=== PATIENT | male | born 1955 | race Caucasian/White ===

== ENCOUNTER 2019-01-27 10:20 | Observation (INO) | payer OTHER ==
[~2019-01-27] VITALS: Ht 165.1 cm; Wt 84.5 kg
[2019-01-27 11:34] VITALS: BP 158/110
[2019-01-27] MEDS ORDERED: LOSARTAN POTAS100 M1 PO (13:00)
[2019-01-27] MEDS ORDERED: TRAMADOL HCL50 MG (13:01)
--- NOTE | 2019-01-27 19:05 | NUR ---
RECEIVED PT FROM PACU, S/P LEFT TOTAL HIP ARTHROPLASTY VIA GUERNEY. AAOX4. DENIES HEADACHE/DIZZINESS. ABLE TO FOLLOW COMMANDS. SPEECH IS CLEAR. NO SOB NOTED, LUNG SOUNDS CTA. DENIES CHEST PAIN/PRESSURE. DENIES ABDOMINAL DISCOMFORT. W/ HERNÁNDEZ CATHETER DRAINING W/ YELLOW COLORED URINE. W/ ABDUCTOR PILLOW IN BETWEEN THE LEGS. W/ DRESSING ON THE LEFT HIP, CDI. IV SITE ON THE RIGHT HAND GAUGE 22 IS PATENT AND INTACT. SIDE RAILS UPX2. CALL LIGHT ON REACH. PT'S BROTHER AT BEDSIDE. ENDORSED TO PRIMARY NURSE GLADYS FOR CONTINUITY OF CARE
[2019-01-27 19:21] VITALS: BP 123/87
--- NOTE | 2019-01-27 19:35 | NUR ---
RECEIVED PT AT THIS TIME. PT AAOX4 DENIES EARLY/DIZZINESS. BREATHING EVEN AND UNLABORED ON RA WITH NO SOB NOTED. PT IN NO SIGNS OF ACUTE DISTRESS. ABDUCTOR PILLOW IN PLACE. LEFT HIP DRESSING, CDI. CALL BUTTON WITHIN REACH. SAFETY PRECAUTIONS IN PLACE. WILL CONTINUE TO MONITOR. FAMILY AT BEDSIDE.
[2019-01-27 20:54] VITALS: BP 135/69
--- NOTE | 2019-01-28 00:56 | NUR ---
ROUNDS MADE. PT RESTING. BREATHING EVEN AND UNLABORED. NO SIGNS OF DISTRESS NOTED. CALL BUTTON WITHIN REACH. SAFETY PRECAUTIONS IN PLACE. WILL CONTINUE TO MONITOR.
--- NOTE | 2019-01-28 02:33 | NUR ---
PT REPORTED HAVING LLE PAIN. MEDICATED PER EMAR. SAFETY PRECAUTIONS IN PLACE. CALL BUTTON WITHIN REACH. WILL CONTINUE TO MONITOR.
[2019-01-28 05:33] VITALS: BP 131/65
--- NOTE | 2019-01-28 06:28 | NUR ---
PT SLEPT MOST OF THE NIGHT WITH NO SIGNS OF DISTRESS. BREATHING EVEN AND UNLABORED ON RA, WITH NO SOB NOTED. PT DENIES ANY PAIN/DISTRESS. ABDUCTOR PILLOW IN PLACE. F/C D/C THIS AM PER ORDER. 350CC YELLOW URINE OUTPUT. IV PATENT, INFUSING WELL WITH NO SIGNS OF DISTRESS NOTED. MEDICATED PER EMAR. CALL BUTTON WIHTIN REACH. SAFETY PRECAUTIONS IN PLACE. WILL CONTINUE TO MONITOR AND ENDORSE CARE TO DAY SHIFT RN.
[2019-01-28 06:49] LABS: BASOPHIL % 0.1 % (0-2); PLATELET COUNT 164 x10^3mcL (130-400); RED CELL DISTRIBUTION WIDTH 13.3 % (11.5-14.5)
[2019-01-28 07:12] LABS: CALCIUM 8.1 mg/dL (8.5-10.1); CARBON DIOXIDE 24.9 mmol/L (21-32); CHLORIDE SERUM 105 mmol/L (98-107); GFR1 > 60 mL/min; GLUCOSE SERUM 123 mg/dL (74-106); POTASSIUM SERUM 4.1 mmol/L (3.5-5.1); SODIUM SERUM 137 mmol/L (136-145)
--- NOTE | 2019-01-28 07:39 | NUR ---
PT RESTING, BREATHING EVEN AND UNLABORED ON RA WITH NO SOB NOTED. NO SIGNS OF DISTRESS NOTED. ENDORSED CARE TO DAY SHIFT RN, ALL QUESTIONS ADDRESSED.
--- NOTE | 2019-01-28 07:48 | NUR ---
RECIVED HAND OFF REPORT FROM ADULT MINISTRIES DIRECTOR. PATIENT LAYING SUPINE IN BED, EYES CLOSED, BRETHING REGULAR AND UNLABORED, APPARENTLY ASLEEP. NC ON PATIENT WITH 4LPM O2. CALL LIGHT WITHIN REACH, BED IN LOWEST POSITION. WILL CONTINUE TO MONITOR
[2019-01-28 08:31] VITALS: BP 103/63
--- NOTE | 2019-01-28 09:54 | NUR ---
ADMINISTERED MEDICATIONS PER APR. MERCEDEZ RESTING AT THIS TIME. HAS NOT VOIDED AFTER HERNÁNDEZ REMOVAL. ENCOURAGED TO TRY OR MAY NEED RECATH. PATIETN UNDERSTANDS CALL LIGHT WITHIN REACH
--- NOTE | 2019-01-28 12:45 | NUR ---
PATIENT TEMP REPORTED 100.6, TYLENOL ADMINISTERED SCHEDULED. REMOVED BLAKETS FROM PATIENT. PATIENT VOIDED WITHOUT ISSUES. WILL CONTINUE TO MONITOR
[2019-01-28 13:02] VITALS: BP 125/79
--- NOTE | 2019-01-28 16:13 | NUR ---
SHAMEKA FROM PT IS AT BEDSIDE TO WALK PATIENT. MEDICATTEDDUE TO SERVE PAIN WHEN MOVING HIPS AND REMOVING ORTHO SUPPORT PIECES
--- NOTE | 2019-01-28 16:23 | NUR ---
CALLED AND LEFT MESSAGE FOR DR BUAGH TO INQUIRE IF PATIENT WAS PLANNED TO BE DISCHARGED TODAY OR TOMORROW. WAS SEEN [employer] ROUNDING ON PATIENTS BUT THERE IS NO DOCUMENTATION OF ORDERS FOR PATIENT
[2019-01-28 17:36] VITALS: BP 107/68
--- NOTE | 2019-01-28 17:37 | NUR ---
PATEINT AMBULATED WITH PT. STEVENERATED WELL. BACK IN BED AT THIS TIME. PAIN CONTROLLED, FEVER CONTROLLED.
[2019-01-28 18:03] VITALS: BP 109/65
--- NOTE | 2019-01-28 20:42 | NUR ---
RECEIVED A CALL FROM DR BAUGH WITH PT UPDATE TO CONTINUE TO HAVE ELEVATED TEMP DURING THE DAY. PER DR BAUGH TO ENCOURAGE TO USE IS AND WILL D/C PT IN THE MORNING.
[2019-01-28 21:09] VITALS: BP 115/50
--- NOTE | 2019-01-29 02:00 | NUR ---
ROUNDS MADE. PT RESTING. BREATHING EVEN AND UNLABORED ON RA WITH NO SOB NOTED. NO SIGNS OF ACUTE DISTRESS NOTED. CALL BUTTON WITHIN REACH. SAFETY PRECAUTIONS IN PLACE. WILL CONTINUE TO MONITOR.
[2019-01-29 05:44] VITALS: BP 121/67
--- NOTE | 2019-01-29 06:31 | NUR ---
PT SLEPT MOST OF THE NIGHT WITH NO SIGNS OF DISTRESS. BREATHING EVEN AND UNLABORED ON RA, WITH NO SOB NOTED. PT DENIES ANY PAIN/DISTRESS. ABDUCTOR PILLOW IN PLACE. IV PATENT, INFUSING WELL WITH NO SIGNS OF DISTRESS NOTED. MEDICATED PER EMAR. CALL BUTTON WIHTIN REACH. SAFETY PRECAUTIONS IN PLACE. WILL CONTINUE TO MONITOR AND ENDORSE CARE TO DAY SHIFT RN.
[2019-01-29 06:52] LABS: CALCIUM 8.1 mg/dL (8.5-10.1); CARBON DIOXIDE 24.7 mmol/L (21-32); CHLORIDE SERUM 110 mmol/L (98-107); CREATININE SERUM 0.9 mg/dL (0.7-1.3); GFR1 > 60 mL/min; GLUCOSE SERUM 91 mg/dL (74-106); SODIUM SERUM 142 mmol/L (136-145)
--- NOTE | 2019-01-29 07:10 | NUR ---
RECEIVED REPORT FROM NIGHT NURSE PATIENT A&O X4, DENIES ANY PAIN AT THIS TIME. NO S/S OF ANY RESPIRATORY DISTRESS. DRESSING ON L HIP DRY AND INTACT. ABD SOFT AND FLAT , ACTIVE SOUNDS IN ALL 4 QUADS. ALL QUESTIONS AND CONCERNS ADDRESSED AT THIS TIME. ASSESSMENT COMPLETE. BED IN LOWEST POSITION CALL LIGHT WITHIN REACH. WILL CONTINUE TO MONITOR.
--- NOTE | 2019-01-29 07:33 | NUR ---
PT RESTING. BREATHING EVEN AND UNLABORED ON RA WITH NO SOB NOTED. NO SIGNS OF DISTRESS NOTED. CALL BUTTON WITHIN REACH. SAFETY PRECAUTIONS IN PLACE. ENDORSED CARE TO DAY SHIFT RN, ALL QUESTIONS ADDRESSED.
[2019-01-29 07:36] LABS: BASOPHIL % 0.3 % (0-2); PLATELET COUNT 147 x10^3mcL (130-400); RED CELL DISTRIBUTION WIDTH 13.5 % (11.5-14.5)
[2019-01-29 09:12] VITALS: BP 129/74
--- NOTE | 2019-01-29 09:12 | NUR ---
ADMINISTERED SCHEDULED MEDS PER MAR PATIENT TOLERATED WELL NO ADVERSE REACTIONS NOTED. ALL NEEDS ATTENDED TO AT THIS TIME. BED IN LOW POSITION CALL LIGHT WITHIN REACH WILL CONTINUE TO MONITOR.
--- NOTE | 2019-01-29 10:15 | NUR ---
ADMINISTERED PAIN MEDS FOR PATIENT BEFORE PT PATIENT C/O OF PAIN 8/10 WHEN MOVING. PATIENT TOLERATED WELL NO ADVERSE REACTIONS NOTED. ALL NEEDS ATTENDED TO AT THIS TIME. BED IN LOWEST POSITION CALL LIGHT WITHIN REACH. WILL CONTINUE TO MONITOR.
--- NOTE | 2019-01-29 10:45 | NUR ---
PATIENT WALKING IN HALLWAY WITH WALKER AND PHYSICAL THERAPY. SLOW STEADY GAIT NOTED. PATIENT TOLERATING WELL. C/O PAIN AFTER REPOSITION AND DIMMED LIGHTS FOR COMFORT WILL REASSES.
--- NOTE | 2019-01-29 12:45 | NUR ---
PATIENT SITTING UP IN BED EATING LUNCH TOLERATING DIET WELL. DENIES N/V AT THIS TIME. ALL NEEDS ATTENDED TO. SAFETY PRECAUTIONS IN PLACE. WILL CONTINUE TO MONITOR.
[2019-01-29 13:19] VITALS: BP 122/82
--- NOTE | 2019-01-29 15:12 | NUR ---
Patient sitting up in bed talking with family at bedside. Patient denies any pain at this time. All questions and concerns addressed at this time. Bed in low position call light within reach. Will continue to monitor.
[2019-01-29 17:20] VITALS: BP 135/72
[2019-01-29 17:41] VITALS: BP 135/72
--- NOTE | 2019-01-29 18:00 | NUR ---
PATIENT SPOKE WITH DR. BAUGH FOR REINFORCEMENT OF TEACHING, CARE OF INCISION AND FOLLOW UP APPT. PATIENT VERBALIZED UNDERSTANDING.
--- NOTE | 2019-01-29 18:01 | NUR ---
PATIENT LYING IN BED TALKING ON THE PHONE PATIENT DENIES ANY PAIN AT THIS TIME. NO S/S OF ANY ACUTE DISTRESS. PATIENT DENIES SOB CHEST RISE EQUAL AND UNLABORED. ALL NEEDS ATTENDED TO AT THIS TIME. BED IN LOWEST POSITION CALL LIGHT WITHIN REACH. WILL CONTINUE TO MONITOR.
--- NOTE | 2019-01-29 18:10 | NUR ---
Spoke with dr De Dios and informed him that patient has questions about dressing at surgical site. Per dr De Dios patient to keep dressing at the site and follow up with him in 2 weeks when he has the appoinment. Per dr De Dios patient has a FWW at home and he does not need another type of DME. Dr De Dios requested to talk to the patient and he was connected to the patient. Attending nurse Heidi at bedside.
--- NOTE | 2019-01-29 18:38 | NUR ---
DISCHARGE INSTRUCTIONS GIVEN PATIENT VERBALIZED UNDERSTANDING. IV D/C'D CATHETER INTACT DRESSING APPLIED PATIENT TOLERATED WELL. ALL QUESTIONS AND CONCERNS ADDRESSED AT THIS TIME. PATIENT WAITING FOR RIDE TO COME. BED IN LOWEST POSITION CALL LIGHT WITHIN REACH. WILL ENDORSE CARE TO NIGHT NURSE.
--- NOTE | 2019-01-29 19:18 | NUR ---
PATIENT ESCORTED VIA WHEELCHAIR TO LOBBY WITH [employer] SUPPORT MAKER. MINIMAL ASSISTANCE NEEDED WITH TRANSFER. PATIENT TOLERATED NORCO GIVE 2 HOURS AGO FOR PAIN. ALL QUESTIONS AND CONCERNS ADDRESSED.
== END 2019-01-29 21:20 | disposition home or self-care (01) ==
LOC: MU 10:20
PROVIDERS: ADMIT Orthopaedic Surgery
DX: M16.12 Unilateral primary osteoarthritis, left hip (principal)
CPT/HCPCS: 94150; 97116-GP; 97530-GP; C1713; C1776; G0378; J0690; J1170; J1885; J2250; J2270; J2704; J3010; J3490; J7030; J7120; Q0092